=== PATIENT | female | born 1970 | race Caucasian/White ===

== ENCOUNTER 2017-06-18 12:08 | Emergency (ER) | payer OTHER ==
[2017-06-18 12:18] VITALS: BP 124/60; PULSE 89; RESP 18; TEMP 98.4
[2017-06-18] MEDS ORDERED: DIPH,PERTUS(ACELL)TETVAC-LF 0.5 ML VIAL IM ONE (12:40)
[2017-06-18] MEDS ORDERED: TOPICAL SKIN ADHESIVE 1 EACH AMP TOPICAL ONE (13:03)
--- NOTE | 2017-06-18 13:16 | ED ---
Wound/Laceration HPI - General Chief Complaint: Wound/Laceration Stated Complaint: [facility]-Hand Laceration Source: patient Mode of arrival: ambulatory Limitations: no limitations - History of Present Illness Initial Comments: 47-year-old female patient presents to emergency department today for evaluation of a laceration to the base of her right thumb. Patient states she was at work doing the dishes when a mug broke and sliced her hand. Patient denies any difficulty moving the thumb, denies any numbness or tingling to the thumb. She states that she did wash the wound with soap and water, and her boss did place butterfly strips on the laceration. Patient states that her tetanus shot is not up-to-date. 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 States that it seemed like the laceration wanted to pull apart. She denies any other injuries or other physical symptoms. - Related Data Allergies Allergy/AdvReac Type Severity Reaction Status Date / Time codeine Allergy Rapid Verified 06/18/17 12:18 Heart Rate erythromycin base Allergy Rash/Hives Verified 06/18/17 12:18 Penicillins Allergy Rash/Hives Verified 06/18/17 12:18 Review of Systems ROS Statement: Those systems with pertinent positive or pertinent negative responses have been documented in the HPI. ROS Other: All systems not noted in ROS Statement are negative. Past Medical History Past Medical History: No Reported History History of Any Multi-Drug Resistant Organisms: None Reported Past Surgical History: Bladder Surgery, Uterine Ablation Additional Past Surgical History / Comment(s): cyst removed from ovary, exploratory lap Past Psychological History: No Psychological Hx Reported Smoking Status: Current every day smoker Past Alcohol Use History: Rare Past Drug Use History: None Reported General Exam Limitations: no limitations General appearance: alert, in no apparent distress Respiratory exam: Present: normal lung sounds bilaterally. Absent: respiratory distress, wheezes, rales, rhonchi, stridor Cardiovascular Exam: Present: regular rate, normal rhythm, normal heart sounds. Absent: systolic murmur, diastolic murmur, rubs, gallop, clicks Extremities exam: Present: full ROM, normal capillary refill, other ( Superficial laceration to the base of the right thumb. Laceration is 3 cm in length. Bleeding controlled. Full range of motion to the thumb. Cap refills less than 3 seconds.). Absent: normal inspection, tenderness Neurological exam: Present: alert, oriented X3, CN II-XII intact Psychiatric exam: Present: normal affect, normal mood Skin exam: Present: warm, dry, intact, normal color. Absent: rash Course Vital Signs 06/18/17 12:15 Temperature 98.4 F Pulse Rate 89 Respiratory 18 Rate Blood Pressure 124/60 O2 Sat by Pulse 99 Oximetry Procedures - Laceration Laceration #1 Consent Obtained: verbal consent Time Out Performed: Yes Indication: laceration Site: hand (Right) Size (cm): 3 Description: linear Depth: simple, single layer Type of Sutures: other (Dermabond) Patient Tolerated Procedure: well Medical Decision Making - Medical Decision Making 47 year-old female patient presented to emergency department today for evaluation of a laceration to the base of the right thumb. Wound was evaluated and scrubbed with sterile water. Wound was well approximated without any bleeding. Did Pl., Dermabond over the wound. Gave instructions to patient regarding Dermabond care. Instructions to watch over any signs or symptoms of infection. Injections atop his primary care physician or [facility] in 1-2 days for recheck. Instructed to return for any new, worsening, or concerning symptoms. Patient verbalizes understanding and agrees with this plan. Disposition Clinical Impression: Laceration Disposition: HOME SELF-CARE Condition: Good Instructions: Laceration (ED), Skin Adhesive Care (ED) Additional Instructions: Do not scrub or pick at glue. Keep area clean and dry. Watch for signs and symptoms of infection including redness, swelling, drainage of pus, fever, or chills. Return for any new, worsening, or concerning symptoms. Follow up with her primary care physician or [facility] and 1-2 days for recheck. Referrals: Deann Alcantar MD [Primary Care Provider] - 1-2 days Time of Disposition: 13:16
== END 2017-06-18 13:25 | disposition home or self-care (01) ==
LOC: EC 12:08
DX: S61.011A Laceration without foreign body of right thumb without damage to nail, initial encounter (principal); F17.200 Nicotine dependence, unspecified, uncomplicated; Z23 Encounter for immunization; Z88.5 Allergy status to narcotic agent; Z88.0 Allergy status to penicillin; Z88.1 Allergy status to other antibiotic agents; W26.8XXA Contact with other sharp object(s), not elsewhere classified, initial encounter; Y93.G1 Activity, food preparation and clean up; Y92.69 Other specified industrial and construction area as the place of occurrence of the external cause
CPT/HCPCS: 12002; 90471; 90715; 99282

== ENCOUNTER → 2017-12-10 | Outpatient (CLI) | payer OTHER ==
--- NOTE | 2017-12-10 17:33 | XR ---
EXAMINATION TYPE: XR chest 2V DATE OF EXAM: 12/10/2017 COMPARISON: NONE HISTORY: Bronchitis. Cough TECHNIQUE: Frontal and lateral views of the chest are obtained. FINDINGS: Heart and mediastinum are normal. Lungs are clear. Diaphragm is normal. Bony thorax is int act. IMPRESSION: Normal chest
== END | disposition home or self-care (01) ==
LOC: RADXRMAIN 16:37
PROVIDERS: ATTEND Physician Assistant
DX: J20.9 Acute bronchitis, unspecified (principal)
CPT/HCPCS: 71046

== ENCOUNTER → 2017-12-23 | Outpatient (CLI) | payer OTHER ==
--- NOTE | 2017-12-24 13:23 | MM ---
Reason for exam: screening (asymptomatic). Last mammogram was performed 1 year and 7 months ago. History: Patient is postmenopausal and has history of endometrial cancer at age 21. Family history of breast cancer in 2 maternal aunts. Physical Findings: A clinical breast exam by your physician is recommended on an annual basis and results should be correlated with mammographic findings. MG 3D Screening Mammo W/Cad Bilateral CC and MLO view(s) were taken. Prior study comparison: May 23, 2016, bilateral MG 3d screening mammo w/cad. September 09, 2014, bilateral MG screening mammo w CAD. The breast tissue is heterogeneously dense. This may lower the sensitivity of mammography. Focal asymmetry upper inner left breast 7.1cm from nipple. This finding is changed when compared with previous exams. ASSESSMENT: Incomplete: need additional imaging evaluation, BI-RAD 0 RECOMMENDATION: Special view mammogram of the left breast. If lesion persists on supplemental views, image directed ultrasound is recommended. [facility] will attempt to contact patient to return for supplemental views and ultrasound if indicated.
== END | disposition home or self-care (01) ==
LOC: RADMAMWWP 15:19
PROVIDERS: ATTEND Obstetrics & Gynecology
DX: Z12.31 Encounter for screening mammogram for malignant neoplasm of breast (principal); Z80.3 Family history of malignant neoplasm of breast
CPT/HCPCS: 77063; 77067

== ENCOUNTER → 2018-01-01 | Outpatient (CLI) | payer OTHER ==
--- NOTE | 2018-01-04 08:22 | MM ---
Reason for exam: additional evaluation requested from abnormal screening. Last mammogram was performed less than 1 month ago. History: Patient is postmenopausal and has history of endometrial cancer at age 21. Family history of breast cancer in 2 maternal aunts. Physical Findings: Nurse Summary: 1cm nodule in the left breast at 11 o'clock (nurse mj). MG 3D Work Up W/Cad LT CC and MLO view(s) were taken of the left breast. Prior study comparison: December 23, 2017, bilateral MG 3d screening mammo w/cad. May 23, 2016, bilateral MG 3d screening mammo w/cad. The breast tissue is heterogeneously dense. This may lower the sensitivity of mammography. The previously seen focal asymmetry of the central inner left breast is unchanged back to 2013 and appears as fibroglandular tissue on additional views. These results were verbally communicated with the patient and result sheet given to the patient on 01/01/18. ASSESSMENT: Benign, BI-RAD 2 RECOMMENDATION: Return to routine screening mammogram schedule for both breasts.
== END | disposition home or self-care (01) ==
LOC: RADMAMWWP 15:06
PROVIDERS: ATTEND Obstetrics & Gynecology
DX: R92.8 Other abnormal and inconclusive findings on diagnostic imaging of breast (principal)
CPT/HCPCS: 77065; G0279

== ENCOUNTER 2018-01-09 07:18 | Emergency (ER) | payer OTHER ==
[2018-01-09 07:25] VITALS: TEMP 97.7
[2018-01-09] MEDS ORDERED: ONDANSETRON 4 MG/2 ML VIAL IVP STA (07:47)
[2018-01-09] MEDS ORDERED: MECLIZINE 12.5 MG TAB PO STA (07:47)
[2018-01-09 08:04] LABS: Basophils # (A) 0.1 k/uL (0-0.2); Basophils % (A) 1 %; Eosinophils # (A) 0.2 k/uL (0-0.7); Eosinophils % (A) 3 %; HCT 43.4 % (34.0-46.0); HGB 14.1 gm/dL (11.4-16.0); Lymphocytes # (A) 2.1 k/uL (1.0-4.8); Lymphocytes % (A) 34 %; MCH 29.6 pg (25.0-35.0); MCHC 32.4 g/dL (31.0-37.0); MCV 91.4 fL (80.0-100.0); Mean Platelet Volume 8.5; Monocytes # (A) 0.4 k/uL (0-1.0); Monocytes % (A) 6 %; Neutrophils # (A) 3.4 k/uL (1.3-7.7); Neutrophils % (A) 54 %; Platelet Count 189 k/uL (150-450); RBC 4.75 m/uL (3.80-5.40); RDW 12.6 % (11.5-15.5); WBC 6.2 k/uL (3.8-10.6)
[2018-01-09 08:14] LABS: ALT 30 U/L (9-52); AST 20 U/L (14-36); Albumin 3.9 g/dL (3.5-5.0); Alkaline Phosphatase 60 U/L (38-126); Anion Gap 6 mmol/L; Blood Urea Nitrogen 15 mg/dL (7-17); Calcium 9.4 mg/dL (8.4-10.2); Carbon Dioxide 26 mmol/L (22-30); Chloride 108 mmol/L (98-107); Glucose 79 mg/dL (74-99); Potassium 4.7 mmol/L (3.5-5.1); Sodium 140 mmol/L (137-145); Total Bilirubin 0.4 mg/dL (0.2-1.3); Total Protein 6.4 g/dL (6.3-8.2)
[2018-01-09] MEDS ORDERED: SODIUM CHLORIDE 0.9% 1,000 ML IV STA (08:23)
[2018-01-09 08:24] LABS: Prothrombin Time 9.8 sec (9.0-12.0)
--- NOTE | 2018-01-09 08:26 | ED ---
General Adult HPI - General Chief complaint: Dizziness Stated complaint: DIZZINESS, NAUSEA Time Seen by Provider: 01/09/18 08:15 Source: patient, RN notes reviewed Mode of arrival: wheelchair Limitations: no limitations - History of Present Illness Initial comments: 47-year-old female who presents emergency room today with chief complaint of dizziness that began 2 hours ago. She states she woke up and went to stand up out of bed and had a sensation of dizziness. Describes it as the room spinning. Since skin. Nauseated and had episodes of vomiting. She does admit that she's had small episodes of dizziness in the past but nothing quite like this. She states she has begun to feel a little better here in the emergency room. States still seems to be worse with certain movements. Denies any other complaints. Patient denies any recent fever, chills, shortness of breath, chest pain, back pain, abdominal pain, nausea or vomiting, numbness or tingling, dysuria or hematuria, constipation or diarrhea, visual changes, or any other complaints. - Related Data Previous Rx's Medication Instructions Recorded Meclizine [Antivert] 25 mg PO DAILY 10 Days tab 01/09/18 Ondansetron Odt [Zofran ODT] 4 mg PO Q8HR PRN #10 tab 01/09/18 Allergies Allergy/AdvReac Type Severity Reaction Status Date / Time codeine Allergy Rapid Verified 01/09/18 07:24 Heart Rate erythromycin base Allergy Rash/Hives Verified 01/09/18 07:24 Penicillins Allergy Rash/Hives Verified 01/09/18 07:24 sumatriptan [From Imitrex] Allergy Rapid Verified 01/09/18 07:25 Heart Rate Review of Systems ROS Statement: Those systems with pertinent positive or pertinent negative responses have been documented in the HPI. ROS Other: All systems not noted in ROS Statement are negative. Past Medical History Past Medical History: No Reported History History of Any Multi-Drug Resistant Organisms: None Reported Past Surgical History: Bladder Surgery, Uterine Ablation Additional Past Surgical History / Comment(s): cyst removed from ovary, exploratory lap nasel surg Past Psychological History: No Psychological Hx Reported Smoking Status: Current every day smoker Past Alcohol Use History: Rare Past Drug Use History: None Reported General Exam - General Exam Comments Initial Comments: General: The patient is awake and alert, in no distress, and does not appear acutely ill. Eye: Pupils are equal, round and reactive to light, extra-ocular movements are intact. No nystagmus. There is normal conjunctiva bilaterally. No signs of icterus. Ears, nose, mouth and throat: There are moist mucous membranes and no oral lesions. Tympanic tube on the left. Right TM clear. Neck: The neck is supple, there is no tenderness or JVD. Cardiovascular: There is a regular rate and rhythm. No murmur, rub or gallop is appreciated. Respiratory: Lungs are clear to auscultation, respirations are non-labored, breath sounds are equal. No wheezes, stridor, rales, or rhonchi. Musculoskeletal: Normal ROM, no tenderness. Strength 5/5. Sensation intact. Pulses equal bilaterally 2+. Neurological: A&O x 3. CN II-XII intact, There are no obvious motor or sensory deficits. Coordination appears grossly intact. Speech is normal. Skin: Skin is warm and dry and no rashes or lesions are noted. Psychiatric: Cooperative, appropriate mood & affect, normal judgment. Limitations: no limitations Course Vital Signs 01/09/18 07:21 Temperature 97.7 F Pulse Rate 78 Respiratory 18 Rate Blood Pressure 122/79 O2 Sat by Pulse 100 Oximetry EKG Findings - EKG Comments: EKG Findings:: EKG performed at 0802: A 12-lead EKG was performed and shows the following: Rate is 64, and rhythm is normal sinus. There are normal QRS complexes and normal R-wave progression. ST segments have no elevation or depression, and PA segments appear normal. Medical Decision Making - Medical Decision Making 47-year-old female with no significant past medical history presenting today with chief complaint of dizziness. She states that started when she got out of bed and stand up. Prescription is room spinning. Patient given a liter bolus here the emergency room given meclizine along with Zofran. Feeling much better at this time. Her labs been reviewed are unremarkable. Patient denies any pain at any time at this time patient is comfortable being discharged. This was following up the family doctor the next 2 days. Will be given a prescription for meclizine. Patient given information about Owen's maneuver. Patient is advised return to emergency room if any symptoms increase worsen or for any other concerns. Patient states understanding and is in agreement. - Lab Data Result diagrams: 01/09/18 07:55 01/09/18 07:55 Lab Results 01/09/18 01/09/18 01/09/18 Range/Units 07:55 07:55 07:55 WBC 6.2 (3.8-10.6) k/uL RBC 4.75 (3.80-5.40) m/uL Hgb 14.1 (11.4-16.0) gm/dL Hct 43.4 (34.0-46.0) % MCV 91.4 (80.0-100.0) fL MCH 29.6 (25.0-35.0) pg MCHC 32.4 (31.0-37.0) g/dL RDW 12.6 (11.5-15.5) % Plt Count 189 (150-450) k/uL Neutrophils % 54 % Lymphocytes % 34 % Monocytes % 6 % Eosinophils % 3 % Basophils % 1 % Neutrophils # 3.4 (1.3-7.7) k/uL Lymphocytes # 2.1 (1.0-4.8) k/uL Monocytes # 0.4 (0-1.0) k/uL Eosinophils # 0.2 (0-0.7) k/uL Basophils # 0.1 (0-0.2) k/uL PT 9.8 (9.0-12.0) sec INR 1.0 (<1.2) Sodium 140 (137-145) mmol/L Potassium 4.7 (3.5-5.1) mmol/L Chloride 108 H (98-107) mmol/L Carbon Dioxide 26 (22-30) mmol/L Anion Gap 6 mmol/L BUN 15 (7-17) mg/dL Creatinine 0.80 (0.52-1.04) mg/dL Est GFR (MDRD) Af Amer >60 (>60 ml/min/1.73 sqM) Est GFR (MDRD) Non-Af >60 (>60 ml/min/1.73 sqM) Glucose 79 (74-99) mg/dL Calcium 9.4 (8.4-10.2) mg/dL Total Bilirubin 0.4 (0.2-1.3) mg/dL AST 20 (14-36) U/L ALT 30 (9-52) U/L Alkaline Phosphatase 60 (38-126) U/L Troponin I (0.000-0.034) ng/mL Total Protein 6.4 (6.3-8.2) g/dL Albumin 3.9 (3.5-5.0) g/dL 01/09/18 Range/Units 07:55 WBC (3.8-10.6) k/uL RBC (3.80-5.40) m/uL Hgb (11.4-16.0) gm/dL Hct (34.0-46.0) % MCV (80.0-100.0) fL MCH (25.0-35.0) pg MCHC (31.0-37.0) g/dL RDW (11.5-15.5) % Plt Count (150-450) k/uL Neutrophils % % Lymphocytes % % Monocytes % % Eosinophils % % Basophils % % Neutrophils # (1.3-7.7) k/uL Lymphocytes # (1.0-4.8) k/uL Monocytes # (0-1.0) k/uL Eosinophils # (0-0.7) k/uL Basophils # (0-0.2) k/uL PT (9.0-12.0) sec INR (<1.2) Sodium (137-145) mmol/L Potassium (3.5-5.1) mmol/L Chloride (98-107) mmol/L Carbon Dioxide (22-30) mmol/L Anion Gap mmol/L BUN (7-17) mg/dL Creatinine (0.52-1.04) mg/dL Est GFR (MDRD) Af Amer (>60 ml/min/1.73 sqM) Est GFR (MDRD) Non-Af (>60 ml/min/1.73 sqM) Glucose (74-99) mg/dL Calcium (8.4-10.2) mg/dL Total Bilirubin (0.2-1.3) mg/dL AST (14-36) U/L ALT (9-52) U/L Alkaline Phosphatase (38-126) U/L Troponin I <0.012 (0.000-0.034) ng/mL Total Protein (6.3-8.2) g/dL Albumin (3.5-5.0) g/dL Disposition Clinical Impression: Dizziness Disposition: HOME SELF-CARE Condition: Good Instructions: Benign Paroxysmal Positional Vertigo (ED) Additional Instructions: Please use medication as discussed. Please follow-up with family doctor in the next 2 days. Please return to emergency room if the symptoms increase or worsen or for any other concerns. Prescriptions: Meclizine [Antivert] 25 mg PO DAILY 10 Days tab Ondansetron Odt [Zofran ODT] 4 mg PO Q8HR PRN #10 tab PRN Reason: Nausea Referrals: Luis Bowles DO [Primary Care Provider] - 1-2 days Time of Disposition: 09:15
[2018-01-09 09:19] VITALS: BP 150/80; PULSE 72; RESP 16
== END 2018-01-09 09:37 | disposition home or self-care (01) ==
LOC: EC 07:18
DX: R42 Dizziness and giddiness (principal); R11.2 Nausea with vomiting, unspecified; F17.200 Nicotine dependence, unspecified, uncomplicated; Z88.5 Allergy status to narcotic agent; Z88.0 Allergy status to penicillin; Z88.1 Allergy status to other antibiotic agents; Z88.8 Allergy status to other drugs, medicaments and biological substances
CPT/HCPCS: 36415; 93005; 80053; 84484; 85025; 85610; 99284; 96374; 96361; J2405

== ENCOUNTER → 2018-10-14 | Outpatient (CLI) | payer OTHER ==
--- NOTE | 2018-10-14 16:35 | CONS ---
CONSULTATION DATE OF SERVICE: 10/14/2018. 28-year-old lady who has been evaluated in Sleep Center for obstructive sleep apnea- hypopnea syndrome. HISTORY OF PRESENT ILLNESS/SLEEP WAKE EVALUATION: Patient was diagnosed with obstructive sleep apnea in [facility] and at that time she was started on treatment with CPAP, but then she lost around 60 pounds of her weight. Stopped symptoms of obstructive sleep apnea and sleep study was repeated and did not show abnormalities of respiration. Patient stopped using her CPAP and returned it back. Since that time, patient again increased her weight to about the same range as before losing weight which is about 190 pounds now. She again developed symptoms of snoring and awakening from sleep with dry mouth up to 3 times and 3 episodes of nocturia at night to sleep schedule. SLEEP SCHEDULE: Her sleep schedule on weekdays from 9 p.m. to 4:30 am. On weekends from 10 p.m. to 7 a.m. FALLING ASLEEP: No problems with falling asleep. DURING SLEEP: She usually sleeps on the side position with loud snoring. DURING THE DAY/SLEEP WAKE EVALUATION: No history of hypnagogic hallucinations, sleep paralysis or cataplexy. [place] Sleepiness Scale is 6. PAST MEDICAL HISTORY: Positive for allergies, sinuses problems, hyperlipidemia. PAST SURGICAL HISTORY: Partial hysterectomy and surgery for ovarian cyst in the past, wrist surgery for cyst. SOCIAL HISTORY: Positive for smoking for about 20 pack years of on and off, quit 4 weeks ago. Alcohol consumption occasional. MEDICATIONS: , amitriptyline, montelukast, colestipol, Flonase, allergy shots. FAMILY HISTORY: Hypertension, heart problems, hyperlipidemia, stroke, arthritis, sinus headaches, lung problems, bronchitis, sleep apnea, snoring, headaches, acid reflux. REVIEW OF SYSTEMS: Multiple awakenings from sleep episodes of sleepiness during the day. PHYSICAL EXAM: A 48-year-old lady without distress BP 155/95 , HR 84, RR 16, height 5 feet 3 inches, weight 189, body mass index 33.4, temperature 97.4, oxygen saturation at room air 98%. Oropharynx extremely low position of soft palate. Neck 15 inches in circumference. Abdomen slightly obese. Neck: Supple, no JVD. Thyroid is not palpable. LUNGS Clear to percussion and to auscultation. Good air exchange. No wheezing or rhonchi. HEART S1, S2 regular. No murmurs, gallops, or rubs. ABDOMEN: Obese. Soft and nontender. Bowel sounds are present. No organomegaly appreciated. EXTREMITIES No clubbing or cyanosis. WAISTLINE JOINER OVERLOCK Awake, alert, and oriented X3. Cranial nerves 2 to 7 intact. There is no fasciculation or atrophy. noted. No focal deficits observed. IMPRESSION: 1. Snoring, multiple awakenings from sleep with dry mouth and nocturia. History of obstructive sleep apnea in the past. Obstructive sleep apnea-hypopnea syndrome. 2. Obesity, body mass index 33.4. 3. Allergy. 4. History of sinus problems. 5. Hyperlipidemia. 6. Status post partial hysterectomy. 7. Status post ovarian cyst surgery in the past. 8. Status post wrist cyst surgery on the right hand. 9. History of 20 pack years smoking, quit 4 weeks ago. PLAN: 1. Polysomnography for evaluation of patient's breathing during sleep. 2. CPAP/BiPAP titration if sleep study confirms obstructive sleep apnea-hypopnea syndrome. 3. Preferable position during sleep on the side. 4. No driving if patient feels any sleepiness. 5. I will see patient for follow up visit to explain results of testing and following plan. Thank you very much for referring this patient for consultation. Sincerely, En Alba MD, PhD, FAASM Diplomat of [employer] Buyer of [facility] [place] MMODL / ABIGAILN: [id number] /
== END ==
LOC: SLEEP 14:49
PROVIDERS: ATTEND Internal Medicine
DX: G47.33 Obstructive sleep apnea (adult) (pediatric) (principal); E66.9 Obesity, unspecified; T78.40XA Allergy, unspecified, initial encounter; E78.5 Hyperlipidemia, unspecified; Z90.711 Acquired absence of uterus with remaining cervical stump; Z68.33 Body mass index [BMI] 33.0-33.9, adult; Z98.890 Other specified postprocedural states; Z87.891 Personal history of nicotine dependence; Z87.39 Personal history of other diseases of the musculoskeletal system and connective tissue; Z99.89 Dependence on other enabling machines and devices
CPT/HCPCS: 99211

== ENCOUNTER → 2019-01-13 | Outpatient (CLI) | payer OTHER ==
--- NOTE | 2019-01-13 11:47 | PN ---
PROGRESS NOTE DATE OF SERVICE: 01/13/2019 A 48-year-old lady who has been followed in the Sleep Center for treatment of obstructive sleep apnea-hypopnea syndrome. Recently, patient had polysomnogram which showed that patient has obstructive sleep apnea. Then she had CPAP titration and subsequently received CPAP unit. She was not able to use CPAP unit all the time because she had upper respiratory infection and also she has had problems with nasal mask. She tried to change her humidity from 5 down to 4, but it did not help. She still sometimes feels some dryness in her nose. I checked her CPAP unit, pressure is 11 cm of water, usage 25/ nights but usually it averaged 2.5 hours and never she was able to use it more than 4 hours. Leak is acceptable 12 L/minute. Apnea-hypopnea index is totally normal at 0.9. I explained the results of sleep studies to the patient in details. [place] Sleepiness Scale today is 4. MEDICATIONS: Valacyclovir, amitriptyline, montelukast, colestipol, Flonase, allergy shots. PHYSICAL EXAM: Patient in no distress, BP 165/86, HR 96, RR 16, weight 198, temp 97.5, oxygen saturation at room air 98%. OROPHARYNX: Low position of soft palate, Mallampati III. ABDOMEN: Slightly obese. Neck Supple, no JVD. Thyroid is not palpable. LUNGS Clear to percussion and to auscultation. Good air exchange. No wheezing or rhonchi. HEART S1, S2 regular. No murmurs, gallops, or rubs. EXTREMITIES No clubbing or cyanosis. TRANS ROUTER Awake, alert, and oriented X3. Cranial nerves 2 to 7 intact. There is no fasciculation or atrophy. noted. No focal deficits observed. IMPRESSION: 1. Obstructive sleep apnea-hypopnea syndrome, on full control with CPAP. Presently, patient had some difficulties to use CPAP equipment secondary to mask problems and some dryness in the nose and mouth. 2. Obesity. 3. History of allergies. 4. History of sinusitis. 5. History of recent upper respiratory infection. 6. Hyperlipidemia. 7. Status post partial hysterectomy. 8. Status post ovarian cyst surgery in the past. 9. Status post wrist surgery on the right side. 10.History of smoking for about 20 pack years, quit several months ago. PLAN: 1. I changed pressure down to 8 cm of water after reviewing results of the sleep study and check apnea-hypopnea index on CPAP unit. 2. We will try to fit the patient with a nasal pillow mask. 3. Patient may use nasal strips and patient will continue to use chin straps if she has it. 4. We discussed again with the patient how to use humidity, suggest to make her humidifier chamber dry in the morning. 5. Sleep hygiene with time in bed for at least 7.5 hours. 6. No driving if feeling sleepiness. Thank you very much for allowing me to participate in the management of the patient. Sincerely, En Alba MD, PhD, FAASM Diplomat of [employer]packers Manager of [facility] [place] MMODL / ABIGAILN: [id number] /
== END ==
LOC: SLEEP 10:03
PROVIDERS: ATTEND Internal Medicine
DX: G47.33 Obstructive sleep apnea (adult) (pediatric) (principal); E66.9 Obesity, unspecified; E78.5 Hyperlipidemia, unspecified; J32.9 Chronic sinusitis, unspecified; J06.9 Acute upper respiratory infection, unspecified; Z90.711 Acquired absence of uterus with remaining cervical stump; Z91.09 Other allergy status, other than to drugs and biological substances; Z98.890 Other specified postprocedural states; Z87.891 Personal history of nicotine dependence; Z99.89 Dependence on other enabling machines and devices; Z79.899 Other long term (current) drug therapy

== ENCOUNTER → 2019-03-03 | Outpatient (CLI) | payer OTHER ==
--- NOTE | 2019-03-03 11:03 | SFUN ---
SLEEP CENTER FOLLOW UP NOTE DATE OF SERVICE: 03/03/2019 A 48-year-old lady who has been followed in the Sleep Center for treatment of obstructive sleep apnea-hypopnea syndrome. This is her second visit after she was started on treatment with the CPAP. During the first visit, she was not able to use the CPAP equipment more than 4 hours at all. Presently, she is able to use machine a long time. Her mask was changed from the nasal pillow mask to a small nasal mask and she feels comfortable with this mask. Sometimes while she is using CPAP equipment she is developing headaches. [place] Sleepiness Scale today is 5. MEDICATIONS: Valacyclovir, amitriptyline, montelukast, colestipol, Flonase, allergy shots. PHYSICAL EXAM: Patient in no distress. BP 143/87, HR 76, RR 16, weight 200, temp 98.1, oxygen saturation at room air 99%. OROPHARYNX: Low position of soft palate. Mallampati 3. ABDOMEN: Slightly obese. Neck Supple, no JVD. Thyroid is not palpable. LUNGS Clear to percussion and to auscultation. Good air exchange. No wheezing or rhonchi. HEART S1, S2 regular. No murmurs, gallops, or rubs. EXTREMITIES No clubbing or cyanosis. TENANT COORDINATOR Awake, alert, and oriented X3. Cranial nerves 2 to 7 intact. There is no fasciculation or atrophy. noted. No focal deficits observed. I checked patient's CPAP unit. CPAP pressure is 8 cm of water. Usage is 29/30 nights and 22/30 nights more than 4 hours with average usage 5.4 hours which is great. Leak 12 L/minute which is acceptable. Apnea-hypopnea index of only 1.0, which is totally normal. IMPRESSION: 1. Obstructive sleep apnea-hypopnea syndrome. Patient demonstrated good compliance with treatment, benefitting from treatment. 2. Obesity. 3. History of allergies. 4. History of sinusitis. 5. Hyperlipidemia. 6. Status post partial hysterectomy. 7. Status post surgical treatment of ovarian cyst in the past. 8. Status post 3 surgery on the right side. PLAN: 1. Patient will continue to use CPAP equipment every night for the whole night. 2. I will decrease the pressure in CPAP unit down to 6 cm of water. 3. I reviewed the results of the titration with the goal to prevent any headaches which patient is sometimes experiencing. 4. Losing weight. 5. Sleep hygiene with regular time in bed for at least 8 hours. 6. No driving if feeling any sleepiness. Thank you very much for allowing me to participate in the management of your patient. Sincerely, En Alba MD, PhD, FAASM Diplomat of [employer] Mechanical Operator of [facility] [place] MMODL / IJN: [id number] /
== END | disposition home or self-care (01) ==
LOC: SLEEP 10:13
PROVIDERS: ATTEND Internal Medicine
DX: G47.33 Obstructive sleep apnea (adult) (pediatric) (principal); E66.9 Obesity, unspecified; E78.5 Hyperlipidemia, unspecified; Z86.19 Personal history of other infectious and parasitic diseases; Z91.09 Other allergy status, other than to drugs and biological substances; Z99.89 Dependence on other enabling machines and devices; Z90.710 Acquired absence of both cervix and uterus; Z98.890 Other specified postprocedural states; Z79.899 Other long term (current) drug therapy

== ENCOUNTER → 2019-11-21 | Outpatient (CLI) | payer OTHER ==
--- NOTE | 2019-11-22 12:17 | MR ---
EXAMINATION TYPE: MR brain wo/w con DATE OF EXAM: 11/21/2019 COMPARISON: CT sinuses 06/05/2016 HISTORY: Migraine TECHNIQUE: Multiplanar, multisequence images of the brain and brainstem is performed without and with IV contras t, utilizing 8.5 mL intravenous Gadavist . FINDINGS: Diffusion weighted images demonstrate no evidence of a recent infarct or other diffusion ab normality. There is no extra-axial fluid collection. There are few punctate foci of nonspecific whit e matter change predominating in the subcortical white matter with the largest on the right measuring 4 x 2 mm in the frontal lobe on axial flair fat-sat image 17. There are approximately 3 foci in the right hemisphere and 4 within the left hemisphere are all within the supratentorial white matter. The ventricular system and cisternal spaces are normal in size and appearance. The brain volume is age appropriate. Midline structures demonstrate normal morphology. The craniocervical junction appears within normal limits. Post contrast images demonstrate no abnormal enhancement. The dural venous sinuses appear pa tent. The visualized sinuses are clear other than minimal ethmoid mucosal thickening and the globes a re intact. IMPRESSION: 1. No acute infarct, midline shift or mass effect. No evidence of intracranial mass or abnormal intra cranial enhancement. 2. Mild burden nonspecific white matter change. Given the subcortical and frontal lobe distribution t hese are favored to be sequela of migraines, however can be seen in chronic microangiopathy, vasculit is, or less likely demyelinating disease. 3. Very mild ethmoid paranasal sinus mucosal thickening.
== END | disposition home or self-care (01) ==
LOC: RADMRIMAIN 11:36
PROVIDERS: ATTEND Family Medicine
DX: I67.7 Cerebral arteritis, not elsewhere classified (principal); R90.89 Other abnormal findings on diagnostic imaging of central nervous system; G43.009 Migraine without aura, not intractable, without status migrainosus
CPT/HCPCS: 70553; A9585

== ENCOUNTER → 2019-12-13 | Outpatient (CLI) | payer OTHER ==
--- NOTE | 2019-12-13 14:47 | XR ---
EXAMINATION TYPE: XR foot complete RT DATE OF EXAM: 12/13/2019 COMPARISON: NONE HISTORY: 41 year-old female right foot swelling TECHNIQUE: 3 views FINDINGS: Small posterior and plantar calcaneal spurs. No acute fracture, subluxation, or dislocation seen. Mil d first MTP joint degenerative change. Tiny type I accessory navicular. IMPRESSION: Small calcaneal heel spurs and mild first MTP joint OA. No acute osseous abnormality seen.
== END | disposition home or self-care (01) ==
LOC: RADXRMAIN 14:24
PROVIDERS: ATTEND Nurse Practitioner Family
DX: M19.071 Primary osteoarthritis, right ankle and foot (principal)

== ENCOUNTER → 2020-04-14 | Outpatient (CLI) | payer OTHER ==
--- NOTE | 2020-04-16 11:00 | MR ---
EXAMINATION TYPE: MR foot RT wo con DATE OF EXAM: 04/14/2020 COMPARISON: X-ray 12/13/2019 HISTORY: Rt medial foot pain/swelling Standard multiplanar, multisequence MRI departmental protocol Multiplanar, multisequence images of the right foot were acquired. Diffusion weighted imaging was per formed. FINDINGS: There is a small plantar calcaneal spur. There is no evidence of marrow edema or contusion. Trace amount of fluid is seen in the posterior aspect of the ankle joint. Peroneous longus and brevis tendons are intact and have a normal appearance. There is a small amount of fluid surrounding the posterior tibialis and flexor digitorum tendons. Achilles tendon is intact. The sinus tarsi has a normal appearance. Medial and lateral ligamentous complex appears intact including the deltoid ligament. There is increa sed signal along the posterior medial tibial calcaneal ligament without evidence of disruption. There is mild arthropathy of the first MTP joint. Posteriorly there is increased signal along the capsule. Findings are suspicious for a posterior tibi ofibular ligament sprain. IMPRESSION: 1. Tenosynovitis of the posterior tibialis and flexor digitorum tendons. 2. Sprain of the posterior tibial calcaneal ligament. 3. Sprain of the posterior tibial talar ligament.
== END | disposition home or self-care (01) ==
LOC: RADMRIMAIN 11:07
PROVIDERS: ATTEND Podiatrist Foot & Ankle Surgery
DX: M65.9 Synovitis and tenosynovitis, unspecified (principal); S93.601A Unspecified sprain of right foot, initial encounter; R60.0 Localized edema; M67.971 Unspecified disorder of synovium and tendon, right ankle and foot

== ENCOUNTER → 2020-04-16 | Outpatient (CLI) | payer OTHER ==
--- NOTE | 2020-04-17 12:10 | MR ---
EXAMINATION TYPE: MR ankle RT wo con DATE OF EXAM: 04/16/2020 COMPARISON: MRI of the right foot dated 04/14/2020 and right foot x-rays dated 12/13/2019 HISTORY: Right Ankle Pain, Swelling, Redness and Limited Movement. Since Dec TECHNIQUE: Multiplanar, multisequence images of the right ankle were acquired without intravenous contrast. FINDINGS: The Achilles tendon is unremarkable in signal and morphology without discontinuity. There is very min imal high signal in the origin of the plantar fascia between the plantar fascia and a moderate planta r heel spur. Sinus tarsus is unremarkable. Trace tibiotalar joint effusion seen. No focal suspicious bone marrow edema is seen. Incomplete fat saturation of the metatarsals relates t o suboptimal technique. Mild osseous proliferation of the dorsal tibiotalar joint and midfoot, overal l mild arthropathy. The anterior talofibular ligament and posterior tibiofibular femoral ligament appear intact as does t he deltoid ligament however there is some high signal seen in the posterior talofibular ligament and anterior talofibular ligament displays thickening indicative of sprain. Lisfranc ligament appears int act as does the spring ligament. There is thickening and abnormal signal in both the peroneus longus and peroneus brevis tendons witho ut discontinuity. Small amount of fluid is seen surrounding the tibialis posterior, flexor digitorum longus, and flexor hallucis longus. Increased signal is also seen of the flexor hallucis limits. A sm all amount of fluid is also seen surrounding the extensor tendons. IMPRESSION: 1. Tendinosis/tenosynovitis without tear or discontinuity of the peroneus longus and peroneus brevis tendons, flexor compartment tendons and extensor compartment tendons. Overall mild degree. 2. Low-grade sprains of the anterior talofibular ligament and posterior talofibular ligament. 3. Minimal tibiotalar joint effusion. 4. Slight high signal of the origin of the plantar fascia adjacent to a moderate heel spur.
== END | disposition home or self-care (01) ==
LOC: RADMRIMAIN 14:59
PROVIDERS: ATTEND Podiatrist Foot & Ankle Surgery
DX: S93.491A Sprain of other ligament of right ankle, initial encounter (principal); M77.31 Calcaneal spur, right foot

== ENCOUNTER → 2020-12-28 | Outpatient (CLI) | payer OTHER ==
[~2020-12-28] MED LIST: IODINE/POTASS IOD (LUGOLS) BOTTLE TOPICAL ONE
--- NOTE | 2020-12-31 10:32 | NM ---
EXAMINATION TYPE: NM DatScan Brain SPECT DATE OF EXAM: 12/28/2020 COMPARISON: NONE HISTORY: Tremor, unspecified TECHNIQUE: 10 drops of Lugol's solution was administered 1 hour prior to injection as a thyroid bloc linda agent. After the administration of 4.66 mCi I-123 Ioflupane DaTscan. Images obtained 3 hours p ost injection. SPECT images of the brain were acquired with axial and coronal reconstructions. FINDINGS: Normal radiopharmaceutical uptake seen along the striatum on the left. Uptake is mildly asymmetric, m ild decreased uptake posterior striatum on the right is suspected. IMPRESSION: Abnormal striatum on the right as described
== END | disposition home or self-care (01) ==
LOC: RADNMMAIN 10:32
PROVIDERS: ATTEND Psychiatry & Neurology Neurology
DX: R25.1 Tremor, unspecified (principal)
CPT/HCPCS: 78803; A9584

== ENCOUNTER → 2020-12-28 | Outpatient (CLI) | payer OTHER ==
--- NOTE | 2020-12-31 11:52 | MM ---
Reason for exam: screening (asymptomatic). Last mammogram was performed 3 years ago. History: Patient is postmenopausal and has history of endometrial cancer at age 21. Family history of breast cancer in 2 maternal aunts and breast cancer in paternal aunt. Taking estrogen for 3 years. Taking progesterone for 3 years. Physical Findings: A clinical breast exam by your physician is recommended on an annual basis and results should be correlated with mammographic findings. MG Screening Mammo w CAD Bilateral CC and MLO view(s) were taken. Prior study comparison: December 23, 2017, bilateral MG 3d screening mammo w/cad. May 23, 2016, bilateral MG 3d screening mammo w/cad. September 09, 2014, bilateral MG screening mammo w CAD. There are scattered fibroglandular densities. Asymmetric densities left CC view are unchanged. No significant changes when compared with prior studies. ASSESSMENT: Negative, BI-RAD 1 RECOMMENDATION: Routine screening mammogram of both breasts in 1 year.
== END | disposition home or self-care (01) ==
LOC: RADMAMWWP 10:04
PROVIDERS: ATTEND Obstetrics & Gynecology
DX: Z12.31 Encounter for screening mammogram for malignant neoplasm of breast (principal)
CPT/HCPCS: 77067

== ENCOUNTER 2021-01-25 07:47 | Emergency (ER) | payer OTHER ==
[2021-01-25 07:52] VITALS: TEMP 98.1
[2021-01-25] MEDS ORDERED: methylPREDNISolone SOD SUCCI 125 MG/2 ML VIAL IV STA (08:13)
[2021-01-25] MEDS ORDERED: diphenhydrAMINE 50 MG/ML 1 ML VIAL IVP STA (08:13)
--- NOTE | 2021-01-25 08:15 | ED ---
General Adult HPI - General Chief complaint: Allergic Reaction Stated complaint: Allergic reaction Time Seen by Provider: 01/25/21 07:53 Source: patient, RN notes reviewed Mode of arrival: ambulatory Limitations: no limitations - History of Present Illness Initial comments: This is a 50-year-old female presents emergency Department with chief complaint of possible ALLERGIC reaction. Patient states she started on new medication that she started at 10 PM last night. Patient states that she was started on primidone and states that she woke up feeling like she hasn't throat swelling, tightness lip swelling, not feeling well. Patient states that she had a reaction like this in the past with another medication. Patient denies any fevers or chills. Patient denies any exact chest pain she has mild shortness breath. No other complaints. - Related Data Previous Rx's Medication Instructions Recorded Ondansetron Odt [Zofran ODT] 4 mg PO Q8HR PRN #10 tab 01/09/18 RX: Meclizine [Antivert] 25 mg PO DAILY 10 Days tab 01/09/18 Allergies Allergy/AdvReac Type Severity Reaction Status Date / Time codeine Allergy Rapid Verified 01/25/21 07:50 Heart Rate erythromycin base Allergy Rash/Hives Verified 01/25/21 07:50 Penicillins Allergy Rash/Hives Verified 01/25/21 07:50 sumatriptan [From Imitrex] Allergy Rapid Verified 01/25/21 07:50 Heart Rate Review of Systems ROS Statement: Those systems with pertinent positive or pertinent negative responses have been documented in the HPI. ROS Other: All systems not noted in ROS Statement are negative. Past Medical History Past Medical History: No Reported History Additional Past Medical History / Comment(s): tremors History of Any Multi-Drug Resistant Organisms: None Reported Past Surgical History: Bladder Surgery, Orthopedic Surgery, Uterine Ablation Additional Past Surgical History / Comment(s): cyst removed from ovary, exploratory lap nasel surg, R foot Past Psychological History: No Psychological Hx Reported Smoking Status: Current every day smoker Past Alcohol Use History: None Reported Past Drug Use History: None Reported General Exam Limitations: no limitations General appearance: alert, in no apparent distress Head exam: Present: atraumatic, normocephalic, normal inspection Eye exam: Present: normal appearance, PERRL, EOMI. Absent: scleral icterus, co njunctival injection, periorbital swelling ENT exam: Present: normal exam, normal oropharynx, mucous membranes moist Neck exam: Present: normal inspection, full ROM. Absent: tenderness, meningismus, lymphadenopathy Respiratory exam: Present: normal lung sounds bilaterally. Absent: respiratory distress, wheezes, rales, rhonchi, stridor Cardiovascular Exam: Present: regular rate, normal rhythm, normal heart sounds. Absent: systolic murmur, diastolic murmur, rubs, gallop, clicks GI/Abdominal exam: Present: soft, normal bowel sounds. Absent: distended, tenderness, guarding, rebound, rigid Neurological exam: Present: alert, oriented X3, CN II-XII intact Skin exam: Present: warm, dry, intact, normal color. Absent: rash Course Vital Signs 01/25/21 01/25/21 01/25/21 07:50 08:00 08:01 Temperature 98.1 F Pulse Rate 84 78 Respiratory 18 24 24 Rate Blood Pressure 174/84 O2 Sat by Pulse 100 100 Oximetry 01/25/21 08:56 Temperature Pulse Rate 77 Respiratory 16 Rate Blood Pressure 150/86 O2 Sat by Pulse 100 Oximetry EKG Findings - EKG Comments: EKG Findings:: EKG performed at 17:58 normal sinus rhythm rate of 73 HI 122 QRS 78 QT/QTC 380/427 Medical Decision Making - Medical Decision Making Patient updated on results and reevaluated. She does state that her throat feels improved. Patient most likely is having a reaction from medication. Patient we discharged in stable condition return parameters discussed. - Lab Data Result diagrams: 01/25/21 08:21 01/25/21 08:21 Lab Results 01/25/21 01/25/21 01/25/21 Range/Units 08:21 08:21 08:21 WBC 8.7 (3.8-10.6) k/uL RBC 4.48 (3.80-5.40) m/uL Hgb 14.0 (11.4-16.0) gm/dL Hct 41.0 (34.0-46.0) % MCV 91.5 (80.0-100.0) fL MCH 31.2 (25.0-35.0) pg MCHC 34.1 (31.0-37.0) g/dL RDW 12.5 (11.5-15.5) % Plt Count 183 (150-450) k/uL MPV 8.7 Neutrophils % 65 % Lymphocytes % 25 % Monocytes % 5 % Eosinophils % 3 % Basophils % 1 % Neutrophils # 5.6 (1.3-7.7) k/uL Lymphocytes # 2.2 (1.0-4.8) k/uL Monocytes # 0.5 (0-1.0) k/uL Eosinophils # 0.2 (0-0.7) k/uL Basophils # 0.1 (0-0.2) k/uL Sodium 137 (137-145) mmol/L Potassium 4.4 (3.5-5.1) mmol/L Chloride 107 (98-107) mmol/L Carbon Dioxide 27 (22-30) mmol/L Anion Gap 3 mmol/L BUN 12 (7-17) mg/dL Creatinine 0.86 (0.52-1.04) mg/dL Est GFR (CKD-EPI)AfAm >90 (>60 ml/min/1.73 sqM) Est GFR (CKD-EPI)NonAf 80 (>60 ml/min/1.73 sqM) Glucose 104 H (74-99) mg/dL Calcium 9.4 (8.4-10.2) mg/dL Total Bilirubin 0.5 (0.2-1.3) mg/dL AST 18 (14-36) U/L ALT 13 (4-34) U/L Alkaline Phosphatase 83 (38-126) U/L Troponin I <0.012 (0.000-0.034) ng/mL Total Protein 6.4 (6.3-8.2) g/dL Albumin 3.9 (3.5-5.0) g/dL Disposition Clinical Impression: Allergic reaction to drug Disposition: HOME SELF-CARE Condition: Stable Instructions (If sedation given, give patient instructions): General Allergic Reaction (ED) Additional Instructions: Continue Benadryl every 6 hours as directed. Please return to the Emergency Department if symptoms worsen or any other concerns. Is patient prescribed a controlled substance at d/c from ED?: No Referrals: Luis Bowles DO [Primary Care Provider] - 1-2 days Time of Disposition: 09:37
[2021-01-25 08:43] LABS: Basophils # (A) 0.1 k/uL (0-0.2); Basophils % (A) 1 %; Eosinophils # (A) 0.2 k/uL (0-0.7); Eosinophils % (A) 3 %; Lymphocytes # (A) 2.2 k/uL (1.0-4.8); Lymphocytes % (A) 25 %; MCH 31.2 pg (25.0-35.0); MCHC 34.1 g/dL (31.0-37.0); MCV 91.5 fL (80.0-100.0); Mean Platelet Volume 8.7; Monocytes # (A) 0.5 k/uL (0-1.0); Monocytes % (A) 5 %; Neutrophils # (A) 5.6 k/uL (1.3-7.7); Neutrophils % (A) 65 %; Platelet Count 183 k/uL (150-450); RBC 4.48 m/uL (3.80-5.40); RDW 12.5 % (11.5-15.5); WBC 8.7 k/uL (3.8-10.6)
[2021-01-25 08:51] LABS: ALT 13 U/L (4-34); AST 18 U/L (14-36); African American GFR (CKD) >90 (>60 ml/min/1.73 sqM); Albumin 3.9 g/dL (3.5-5.0); Alkaline Phosphatase 83 U/L (38-126); Anion Gap 3 mmol/L; Blood Urea Nitrogen 12 mg/dL (7-17); Calcium 9.4 mg/dL (8.4-10.2); Carbon Dioxide 27 mmol/L (22-30); Chloride 107 mmol/L (98-107); Glucose 104 mg/dL (74-99); Non-African American GFR(CKD) 80 (>60 ml/min/1.73 sqM); Potassium 4.4 mmol/L (3.5-5.1); Sodium 137 mmol/L (137-145); Total Bilirubin 0.5 mg/dL (0.2-1.3); Total Protein 6.4 g/dL (6.3-8.2)
[2021-01-25 08:57] VITALS: BP 150/86; PULSE 77; RESP 16
== END 2021-01-25 09:54 | disposition home or self-care (01) ==
LOC: EC 07:47
DX: R06.02 Shortness of breath (principal); T50.905A Adverse effect of unspecified drugs, medicaments and biological substances, initial encounter; Z88.0 Allergy status to penicillin; F17.200 Nicotine dependence, unspecified, uncomplicated
CPT/HCPCS: 36415; 93005; 80053; 84484; 85025; 99285; 96374; 96375; J1200; J2930

== ENCOUNTER → 2021-12-09 | Outpatient (CLI) | payer OTHER ==
--- NOTE | 2021-12-10 09:02 | MR ---
EXAMINATION TYPE: MR ankle RT wo con DATE OF EXAM: 12/09/2021 COMPARISON: 04/16/2020 HISTORY: 51-year-old female right ankle pain and swelling, limited range of motion. TECHNIQUE: Multiplanar, multisequence images of the right ankle were obtained without IV contrast. FINDINGS: There is new focal subchondral marrow edema along the dorsal distal mid navicular with curvilinear lo w T1 signal. Findings could represent edema reactive to a focal osteochondral injury or subtle subcho ndral impaction fracture. Otherwise, no acute or healing fracture is seen. Subtalar joint is aligned. Small tibiotalar joint effusion. Small delineation to the Achilles tendon. [id number] sized plantar heel spur redemonstrated. No significant abnormal thickening at the o rigin of the plantar fascia. Preserved signal within the sinus Tarsi. The tarsal tunnel is clear. There is mild tenosynovial fluid along both the medial flexor tendons as well as the lateral peroneal tendons. Interval surgical repair at the navicular insertion of the posterior tibial tendon. No tate tear is identified. There is a short segment split tear measuring approximately 1.2 cm long at the insertion of the peron eus brevis, refer to axial image 4. Anterior extensor tendons appear satisfactory. The ATFL and PTFL appear intact. Mild thickening of the CFL could represent a low-grade or chronic sp rain. Somewhat globular signal of the deep posterior deltoid ligament fibers suggesting a low-grade or wood technologist amanda sprain. The syndesmosis appears intact. Mild soft tissue swelling both sides of the ankle. Some susceptibility artifact noted on the superficial aspect of the heel pad. Correlate to exclude so me type of retained foreign body. IMPRESSION: 1. Interval surgical repair at the navicular insertion of the posterior tibial tendon. No tate tear is identified. 2. New focal subchondral signal change along the dorsal distal navicular could be reactive to an oste ochondral injury at the navicular cuneiform joint versus a subchondral impaction fracture. 3. A short segment longitudinal split tear involving the insertional fibers of the peroneus brevis me asuring 1.2 cm long. 4. Scattered tenosynovial fluid along both medial flexor tendons as well as the lateral peroneal tend ons nonspecific. This could represent physiologic fluid or mild tenosynovitis. 5. Low-grade versus chronic sprain of the CFL as well as the deep posterior deltoid ligament fibers. 6. Focal susceptibility artifact along the superficial aspect of the heel pad. Correlate to exclude s ome type of retained foreign body or external artifact.
== END | disposition home or self-care (01) ==
LOC: RADMRIMAIN 11:46
PROVIDERS: ATTEND Podiatrist Foot & Ankle Surgery
DX: M66.871 Spontaneous rupture of other tendons, right ankle and foot (principal)

== ENCOUNTER → 2022-08-14 | Outpatient (CLI) | payer OTHER ==
--- NOTE | 2022-08-14 14:57 | P.SLEEP ---
History of Present Illness DATE: 08/14/2022 CONSULTATION/NEW PATIENT EVALUATION HISTORY OF PRESENT ILLNESS/SLEEP-WAKE EVALUATION: 52 year old lady had been evaluated in the sleep center for obstructive sleep apnea hypopnea syndrome. Last time I saw patient in February 2019. Patient continued to use use CPAP equipment every night at the present time, previously she was not fully compliant. I checked CPAP unit. Pressure is 6 cm of water usage is 100% of nights, average 5.3 hours per night. Leak is 0 L/m which is perfect. Apnea hypopnea index is 2.8 which is normal. SLEEP SCHEDULE: Usually sleep schedule on weekdays from 9 PM to 5 AM, during days off from 10 PM to 7 AM. FALLING ASLEEP: Sometimes patient has problems with the falling asleep, has TV set and bedroom. DURING SLEEP: Patient usually sleeps on the side position. While using CPAP she still snores occasionally. She may wake up from sleep up to 2 times with nocturia No history of hypnogogical hallucinations, sleep paralysis, or cataplexy. DURING THE DAY/WAKE STATE: In the morning he may feel some tiredness. [place] sleepiness scale is 6. Patient does not take any naps. PAST MEDICAL HISTORY: Hypertension, hyperlipidemia, ALLERGY, sinuses problems, hairpiece Simplex infection, asthma,Covid 19 in November 2021. PAST SURGICAL HISTORY: Partial hysterectomy, nasal surgery. MEDICATIONS: Lisinopril/hydrochlorothiazide, atorvastatin 5 mg once a day, albuterol, aciclovir. SOCIAL HISTORY: Vape smoking, alcohol consumption occasional. FAMILY HISTORY: Hypertension, heart problems, sleep apnea, diabetes, mental illness. REVIEW OF SYSTEMS: Occasional snoring with CPAP. No fevers. No double vision. No recent chest pain. No shortness of breath. No abdominal pain. No bleeding episodes. No blood in urine. No seizure episodes. PHYSICAL EXAMINATION: GENERAL: A pleasant patient without any distress. VITAL SIGNS: BP 116/66, HR 87, RR 16, weight 201.6 pounds, height 5 foot 3 inches, body mass index 35.6. HEENT: PERRLA, EOMI. Evaluation of oropharynx showed tongue protrudes midline, low position of soft palate Mallampati 3. NECK: Supple. No JVD. Thyroid is not palpable. 17 inches in circumference. LUNGS: Clear to percussion and to auscultation. Good air exchange. No wheezing or rhonchi. HEART: S1, S2 regular. No murmurs, gallops or rubs. ABDOMEN: Soft and nontender. Bowel sounds are present. No organomegaly appreciated. EXTREMITIES: No clubbing or cyanosis. LITHOGRAPHIC ETCHER: Awake, alert, and oriented x3. Cranial nerves 2 to 7 intact. There is no fasciculation or atrophy noted. No focal deficits observed. ASSESSMENT: 1. Obstructive sleep apnea-hypopnea syndrome, patient demonstrated the great compliance with CPAP treatment, benefiting from treatment. Occasional snoring on CPAP. 2. Obesity body mass and is 35.6. 3 hypertension. 4. Hyperlipidemia. 5 ALLERGY. 6. History of sinusitis problems, status post nasal surgery in 2019. 7. Hairpiece Simplex on the face. 8. Asthma. 9. Status post COVID-19 in November 2021. PLAN: 1. I changed pressure in CPAP unit up to 7 cm of water. Patient should continue to use CPAP equipment every night for the whole night. 2. Prescription for all necessary CPAP supplies including mask acute filters have been written and sended to [facility] 3. Preferable position during sleep on the side. 4. No driving if patient feels any sleepiness. Patient is aware of civil and criminal liability for unsafe driving. 5. Sleep hygiene with regular sleep time for at least 7.5-8 hours. 6. Watching and losing weight. 7. Follow up visit in 6 months or earlier if patient has any problems. Thank you very much for referring this patient for consultation. Sincerely, En Alba MD, PhD, FAASM. Diplomat of [employer], Sleep Medicine Board by [employer] Academic Records Specialist of [facility] [place] Past Medical History Past Medical History: No Reported History Additional Past Medical History / Comment(s): tremors History of Any Multi-Drug Resistant Organisms: None Reported Past Surgical History: Bladder Surgery, Orthopedic Surgery, Uterine Ablation Additional Past Surgical History / Comment(s): cyst removed from ovary, exploratory lap nasel surg, R foot Past Psychological History: No Psychological Hx Reported Smoking Status: Current every day smoker Past Alcohol Use History: None Reported Past Drug Use History: None Reported Medications and Allergies Home Medications Medication Instructions Recorded Confirmed Type Meclizine [Antivert] 25 mg PO DAILY 10 Days tab 01/09/18 Rx Ondansetron Odt [Zofran ODT] 4 mg PO Q8HR PRN #10 tab 01/09/18 Rx Allergies Allergy/AdvReac Type Severity Reaction Status Date / Time codeine Allergy Rapid Verified 01/25/21 07:50 Heart Rate erythromycin base Allergy Rash/Hives Verified 01/25/21 07:50 Penicillins Allergy Rash/Hives Verified 01/25/21 07:50 sumatriptan [From Imitrex] Allergy Rapid Verified 01/25/21 07:50 Heart Rate Sleep Note - Sleep Note Sleep Note: Temperature: Pulse Rate: Respiratory Rate: Blood Pressure: SpO2: Height: Weight: BMI: Neck Circumference:
== END ==
LOC: SLEEP 13:55
PROVIDERS: ATTEND Internal Medicine
DX: G47.33 Obstructive sleep apnea (adult) (pediatric) (principal); I10 Essential (primary) hypertension; E78.5 Hyperlipidemia, unspecified; J45.909 Unspecified asthma, uncomplicated; E66.9 Obesity, unspecified; Z99.89 Dependence on other enabling machines and devices; Z68.35 Body mass index [BMI] 35.0-35.9, adult; Z86.16 Personal history of COVID-19; J32.9 Chronic sinusitis, unspecified; Z88.5 Allergy status to narcotic agent; Z88.1 Allergy status to other antibiotic agents; Z88.8 Allergy status to other drugs, medicaments and biological substances; Z88.0 Allergy status to penicillin
CPT/HCPCS: 99211

== ENCOUNTER → 2023-02-18 | Outpatient (CLI) | payer OTHER ==
--- NOTE | 2023-02-18 11:50 | CA ---
Exercise Stress Test Report Name: Shirley Farr Exam Date: 02/18/2023 09:40 Exam Location: [place] Stress Ht (in): 62 Wt (lb): 200 BSA: 1.91 Ordering Phys: Luis Bowles DO Referring Phys: Luis Bowles DO Technologist: Kevin Kyle Age: 52 Gender: F : 1970 Procedure CPT: Indications: R07.89 chest pain ICD-10 Codes: Patient History: Medications: Meds past 24 hrs: Pretest Chest Pain: STRESS TEST Celestino Protocol Exercise Duration (min:sec): 06:[address] Depressions (mm): Angina Score: Molina Score: Resting HR (bpm): 87 Peak HR (bpm): 146 Resting BP (mmHg): 122 / 78 Peak BP (mmHg): 131 / 67 MPHR: 169 Target HR: 144 % MPHR: 86 METS: 7.1 Total Dose: Peak Dose: Atropine: Double Product: 01508 BP Response: Stress Termination: TARGET HR REACHED/MAX EXERTION Stress Symptoms: CHEST PRESSURE Stress Summary: ECG ANALYSIS Resting ECG: Stress ECG: CONCLUSIONS Baseline heart rate 89 beats a minute, Baseline blood pressure 122/78 mmHg baseline 12-lead EKG showed normal ST segments Patient exercised on a Celestino protocol for 6 minutes achieving a peak heart rate of 146 beats a minute. Peak blood pressure 131/67 mmHg Patient complained of shortness of breath on exertion and chest pressure There was no ECG is for ischemia No arrhythmias noted Impression average excess capacity Shortness of breath and chest pressure on exertion without any EKG abnormalities at this workload level Dr. Lincoln Garcia MD (Electronically Signed) Final Date: 18 February 2023 11:48
== END | disposition home or self-care (01) ==
LOC: RADNMMAIN 08:25
PROVIDERS: ATTEND Family Medicine
DX: R07.89 Other chest pain (principal); R06.02 Shortness of breath
CPT/HCPCS: 93017

== ENCOUNTER → 2023-02-18 | Outpatient (CLI) | payer OTHER ==
--- NOTE | 2023-02-18 10:51 | P.PN ---
Subjective DATE: 02/18/2023 FOLLOW UP VISIT. Patient with obstructive sleep apnea hypopnea syndrome return to sleep center for follow-up visit. Information from previous visit have been reviewed. Patient is using PAP equipment every night for the whole night, getting PAP supplies in time. The patient does not have significant problems with the mask, PAP unit. Patient has problems with the humidification, sometimes water goes to her nose [place] sleepiness scale is 5, which is normal. I checked information from PAP unit and explaining to the patient. PAP unit pressure 7 cm H2O. Usage is 100 % for more then 4 hours, average 6.8 hours per night. Leak is 0 l/m, which is perfect. Apnea Hypopnea Index is 2.2, which is normal. I discussed with patient in details position of the machine, position of the tube, I teach her how to adjust humidity and temperature in the tube. MEDICATIONS:1. Atorvastatin 20 mg once a day 2. Pantoprazole 3. Advair 4. Acyclovir During physical exam: GENERAL: A pleasant patient without any distress. VITAL SIGNS: BP 133/84, HR 92, RR 20 , weight 211, temperature 98.7, oxygen saturation at room air 97 % . HEENT: PERRLA, EOMI.low position of soft palate, Mallapati 3 . NECK: Supple. No JVD. LUNGS: Clear to percussion and to auscultation. Good air exchange. No wheezing or rhonchi. HEART: S1, S2 regular. ABDOMEN: Soft and nontender.[] EXTREMITIES: No clubbing or cyanosis. LABEL FOLDER: Awake, alert, and oriented x3. No focal deficit. Impressions: 1. Obstructive sleep apnea-hypopnea syndrome. Patient demonstrated great compliance with treatment, benefiting from treatment. 2. Obesity body mass and is 36.7. 3. Hypertension. 4. Hyperlipidemia. 5. ALLERGY. 6. History of sinuses problems. 7. History of herpes simplex. 8. Asthma. 9. Status post COVID-19 in 2021. Plan: 1. Continue using PAP equipment every night for the whole night. 2. To change air filter at least 1-2 times per month. 3. PAP unit should stay lower then position of the head. 4. Advised patient to remove all remaining water from humidifier canister daily and make it dry after each usage. Refill canister with fresh distilled water before each usage. 5. Sleep hygiene with regular time in bed for at least 8 hours. 6. Precautions related to driving. No driving if feel any sleepiness. 7. I will maintain prescription for PAP supplies including mask, tube, filters. 8. Follow up visit in 6 months or earlier if patient has any problems. 9. Watching and losing weight. Thank you very much for allowing me to participate in the management of your patient. En Alba MD, PhD, FAASM. Diplomat of [employer], Sleep Medicine Board by [employer] Software Engineer [employer] [facility] [place]
== END ==
LOC: SLEEP 10:15
PROVIDERS: ATTEND Internal Medicine
DX: G47.33 Obstructive sleep apnea (adult) (pediatric) (principal); E66.9 Obesity, unspecified; E78.5 Hyperlipidemia, unspecified; I10 Essential (primary) hypertension; Z79.51 Long term (current) use of inhaled steroids; Z79.899 Other long term (current) drug therapy; Z86.16 Personal history of COVID-19; Z87.09 Personal history of other diseases of the respiratory system; Z99.89 Dependence on other enabling machines and devices; Z88.5 Allergy status to narcotic agent; Z88.1 Allergy status to other antibiotic agents; Z88.8 Allergy status to other drugs, medicaments and biological substances; F17.200 Nicotine dependence, unspecified, uncomplicated
CPT/HCPCS: 99212

== ENCOUNTER → 2023-04-22 | Outpatient (CLI) | payer OTHER ==
[2023-04-22 17:48] LABS: INR 0.9 (<1.2)
[2023-04-22 17:49] LABS: Partial Thromboplastin Time 22.1 sec (22.0-30.0); Prothrombin Time 9.6 sec (9.0-12.0)
[2023-04-23 03:18] LABS: Basophils # (A) 0.07 X 10*3/uL (0.00-0.10); Eosinophils # (A) 0.22 X 10*3/uL (0.04-0.35); Eosinophils % (A) 3.1 %; HCT 40.5 % (37.2-46.3); Lymphocytes # (A) 2.09 X 10*3/uL (0.90-5.00); Lymphocytes % (A) 29.7 %; MCH 30.6 pg (27.0-32.0); MCHC 32.1 d/dL (32.0-37.0); MCV 95.3 FL (80.0-97.0); Mean Platelet Volume 11.8 FL (9.5-12.2); Monocytes # (A) 0.63 X 10*3/uL (0.20-1.00); NRBC Per 100 WBC 0 X 10*3/uL (0.00-0.01); Neutrophils # (A) 4.01 X 10*3/uL (1.80-7.70); Neutrophils % (A) 57.1 %; Platelet Count 209 X 10*3/uL (140-440); RBC 4.25 X 10*6/uL (4.10-5.20); RDW 12.2 % (11.5-14.5); WBC 7.03 X 10*3/uL (4.50-10.00)
== END | disposition home or self-care (01) ==
LOC: LABWHC1 16:06
PROVIDERS: ATTEND Ophthalmology
DX: H11.32 Conjunctival hemorrhage, left eye (principal)
CPT/HCPCS: 36415; 85025; 85302; 85610; 85730

== ENCOUNTER → 2024-02-18 | Outpatient (CLI) | payer MEDICAID ==
[2024-02-18 14:21] VITALS: BP 139/83; PULSE 78; RESP 16; TEMP 97.8
--- NOTE | 2024-02-18 14:43 | P.PN ---
Subjective DATE: 02/18/2024 FOLLOW UP VISIT. Patient with obstructive sleep apnea hypopnea syndrome return to sleep center for follow-up visit. Information from previous visit have been reviewed. Patient is using PAP equipment every night for the whole night, getting PAP supplies in time. The patient does not have significant problems with the mask, PAP unit and humidification. Maribel sleepiness scale is 7, which is in normal range. I checked information from PAP unit. PAP unit pressure 7 cm H2O. Usage is 100% for more then 4 hours, average 6 hours per night. Leak is perfect 0 l/m. Apnea Hypopnea Index is 2.7, which is normal. MEDICATIONS:1. Lisinopril/hydrochlorothiazide 2. Aciclovir During physical exam: GENERAL: A pleasant patient without any distress. VITAL SIGNS: Please see below, weight 212 pounds, BMI 37.5. HEENT: PERRLA, EOMI.low position of soft palate, Mallapati 3 . NECK: Supple. No JVD. LUNGS: Clear to percussion and to auscultation. Good air exchange. No wheezing or rhonchi. HEART: S1, S2 regular. ABDOMEN: Soft and nontender.[] EXTREMITIES: No clubbing or cyanosis. LEPIDOPTERIST: Awake, alert, and oriented x3. No focal deficit. Impressions: 1. Obstructive sleep apnea-hypopnea syndrome. Patient demonstrated great compliance with treatment, benefiting from treatment. 2. Obesity, BMI 37.5, weight is about the same as during previous visit. 3. Hypertension. 4. Allergy. 5. Hyperlipidemia. 6. History of sinuses problems. 7. History of herpes simplex. 8. Asthma. 9. Status post COVID-19 in the past. Plan: 1. Continue using PAP equipment every night for the whole night. 2. To change air filter at least 1-2 times per month. 3. PAP unit should stay lower then position of the head. 4. Advised patient to remove all remaining water from humidifier canister daily and make it dry after each usage. Refill canister with fresh distilled water before each usage. 5. Sleep hygiene with regular time in bed for at least 8 hours. 6. Precautions related to driving. No driving if feel any sleepiness. 7. I will maintain prescription for PAP supplies including mask, tube, filters. 8. Watching and losing weight. 9. Follow up visit in 6 months or earlier if patient has any problems. Thank you very much for allowing me to participate in the management of your patient. En Alab MD, PhD, FAASM. Diplomat of [place] [employer], Sleep Medicine Board by [place] [employer] Supervisor [employer] [facility] Objective - Vital Signs Vital signs: Vital Signs Temp 97.8 F 02/18/24 13:51 Pulse 78 02/18/24 13:51 Resp 16 02/18/24 13:51 BP 139/83 02/18/24 13:51 Pulse Ox 99 02/18/24 13:51 FiO2 Intake & Output 02/17/24 02/18/24 02/18/24 18:59 06:59 18:59 Weight 96.162 kg
== END ==
LOC: 3 N SLEEP 13:32
PROVIDERS: ATTEND Internal Medicine
DX: G47.33 Obstructive sleep apnea (adult) (pediatric) (principal); E66.9 Obesity, unspecified; I10 Essential (primary) hypertension; E78.5 Hyperlipidemia, unspecified; J45.909 Unspecified asthma, uncomplicated; F17.200 Nicotine dependence, unspecified, uncomplicated; Z87.09 Personal history of other diseases of the respiratory system; Z99.89 Dependence on other enabling machines and devices; Z86.16 Personal history of COVID-19; Z86.19 Personal history of other infectious and parasitic diseases; Z79.899 Other long term (current) drug therapy; Z88.5 Allergy status to narcotic agent; Z88.1 Allergy status to other antibiotic agents; Z88.0 Allergy status to penicillin; Z88.8 Allergy status to other drugs, medicaments and biological substances; Z68.37 Body mass index [BMI] 37.0-37.9, adult
CPT/HCPCS: 99212

== ENCOUNTER 2024-03-06 11:37 | Emergency (ER) | payer MEDICAID ==
--- NOTE | 2024-03-06 12:04 | ED ---
General Adult HPI - General Chief complaint: Extremity Injury, Lower Stated complaint: L foot injury Time Seen by Provider: 03/06/24 11:52 Source: patient, RN notes reviewed Mode of arrival: ambulatory Limitations: no limitations - History of Present Illness Initial comments: 53 year old female presents to the emergency department for evaluation of left ankle pain. Patient states that yesterday while she was pulling her housekeeping cart, she noticed some discomfort in her left posterior ankle and heel. She notes that since then she has had pain in this location, worse this morning when she woke up. She states that it is worse with walking. Admits to taking Tylenol and icing the area. - Related Data Previous Rx's Medication Instructions Recorded Meclizine [Antivert] 25 mg PO DAILY 10 Days tab 01/09/18 Ondansetron Odt [Zofran ODT] 4 mg PO Q8HR PRN #10 tab 01/09/18 Ketorolac [Toradol] 10 mg PO Q8HR #15 tab 03/06/24 Lidocaine 5% Patch [Lidoderm 5% 1 patch TOPICAL DAILY #30 patch 03/06/24 Patch] Allergies Allergy/AdvReac Type Severity Reaction Status Date / Time codeine Allergy Rapid Verified 03/06/24 11:46 Heart Rate erythromycin base Allergy Rash/Hives Verified 03/06/24 11:46 Penicillins Allergy Rash/Hives Verified 03/06/24 11:46 sumatriptan [From Imitrex] Allergy Rapid Verified 03/06/24 11:46 Heart Rate Review of Systems ROS Statement: Those systems with pertinent positive or pertinent negative responses have been documented in the HPI. ROS Other: All systems not noted in ROS Statement are negative. Past Medical History Past Medical History: No Reported History Additional Past Medical History / Comment(s): tremors History of Any Multi-Drug Resistant Organisms: None Reported Past Surgical History: Bladder Surgery, Orthopedic Surgery, Uterine Ablation Additional Past Surgical History / Comment(s): cyst removed from ovary, exploratory lap nasel surg, R foot Past Psychological History: No Psychological Hx Reported Smoking Status: Current every day smoker Past Alcohol Use History: None Reported Past Drug Use History: None Reported General Exam Limitations: no limitations General appearance: alert, in no apparent distress Head exam: Present: atraumatic, normocephalic, normal inspection Eye exam: Present: normal appearance, PERRL, EOMI. Absent: scleral icterus, conjunctival injection, periorbital swelling Extremities exam: Present: normal inspection, full ROM, tenderness (Left Achilles tendon), normal capillary refill, other (Distal pulses intact). Absent: pedal edema, joint swelling, calf tenderness Neurological exam: Present: alert, oriented X3 Skin exam: Present: warm, dry, intact, normal color. Absent: rash Course Vital Signs 03/06/24 03/06/24 03/06/24 11:44 12:19 13:41 Temperature 98.4 F 98.6 F Pulse Rate 95 117 H 101 H Respiratory 18 16 16 Rate Blood Pressure 130/86 117/79 121/83 O2 Sat by Pulse 99 98 99 Oximetry Medical Decision Making - Medical Decision Making Was pt. sent in by a medical professional or institution (, PA, PHARMACIST ASSISTANT, urgent care, hospital, or fci...) When possible be specific @ -No Did you speak to anyone other than the patient for history (EMS, parent, family, police, friend...)? What history was obtained from this source @ -No Did you review nursing and triage notes (agree or disagree)? Why? @ -I reviewed and agree with nursing and triage notes Were old charts reviewed (outside hosp., previous admission, EMS record, old EKG, old radiological studies, urgent care reports/EKG's, fci records)? Report findings @ -No old charts were reviewed Differential Diagnosis (chest pain, altered mental status, abdominal pain women, abdominal pain men, vaginal bleeding, weakness, fever, dyspnea, syncope, headache, dizziness, GI bleed, back pain, seizure, CVA, palpatations, mental health, musculoskeletal)? @ -Differential Musculoskeletal Muscular strain, contusion, ligament sprain, fracture, arthritis, septic arthritis, bursitis, cellulitis, muscle spasm, nerve compression, DVT, arterial occlusion, herpes zoster, electrolyte abnormality, tumor.... This is not meant to be in all inclusive list EKG interpreted by me (3pts min.). @ -None X-rays interpreted by me (1pt min.). @ -X-rays of the left ankle show no acute fracture, soft tissue swelling CT interpreted by me (1pt min.). @ -None done U/S interpreted by me (1pt. min.). @ -None done What testing was considered but not performed or refused? (CT, X-rays, U/S, labs)? Why? @ -None What meds were considered but not given or refused? Why? @ -None Did you discuss the management of the patient with other professionals (professionals i.e. , PA, PHARMACIST ASSISTANT, lab, RT, psych nurse, social service manager, certified ophthalmic technician, teacher, project control officer, watch case polisher)? Give summary @ -No Was smoking cessation discussed for >3mins.? @ -No Was critical care preformed (if so, how long)? @ -No Were there social determinants of health that impacted care today? How? (Homelessness, low income, unemployed, alcoholism, drug addiction, transportation, low edu. Level, literacy, decrease access to med. care, prison, rehab)? @ -No Was there de-escalation of care discussed even if they declined (Discuss DNR or withdrawal of care, Hospice)? DNR status @ -No What co-morbidities impacted this encounter? (DM, HTN, Smoking, COPD, CAD, Cancer, CVA, ARF, Chemo, Hep., AIDS, mental health diagnosis, sleep apnea, morbid obesity)? @ -None Was patient admitted / discharged? Hospital course, mention meds given and route, prescriptions, significant lab abnormalities, going to OR and other pertinent info. @ -Discharge. Patient presented to the emergency department for evaluation of the left foot and ankle pain. Patient has some tenderness palpation over the left Achilles tendon, patient has good plantarflexion with squeezing the calf. X-rays obtained which show no evidence of acute fracture, soft tissue swelling. Patient likely has Achilles tendinitis. Advised NSAIDs, rest, ice and gentle exercises. Patient understanding agreeable plan. Patient stable at time of discharge. Case discussed with Dr. Miranda. Undiagnosed new problem with uncertain prognosis? @ -No Drug Therapy requiring intensive monitoring for toxicity (Heparin, Nitro, Insulin, Cardizem)? @ -No Were any procedures done? @ -No Diagnosis/symptom? @ -Achilles tendinitis Acute, or Chronic, or Acute on Chronic? @ -Acute Uncomplicated (without systemic symptoms) or Complicated (systemic symptoms)? @ -Uncomplicated Side effects of treatment? @ -No Exacerbation, Progression, or Severe Exacerbation? @ -No Poses a threat to life or bodily function? How? (Chest pain, USA, ND, pneumonia, PE, COPD, DKA, ARF, appy, cholecystitis, CVA, Diverticulitis, Homicidal, Suicidal, threat to staff... and all critical care pts) @ -No Disposition Clinical Impression: Achilles tendonitis Disposition: HOME SELF-CARE Condition: Stable Instructions (If sedation given, give patient instructions): Achilles Tendinitis (ED) Additional Instructions: Do not take any other anti-inflammatory medications such as ibuprofen while taking the toradol. You may take Tylenol with this. Rest, ice, elevate. Utilize gentle stretching exercises. Follow up with your branding specialist. Return to the emergency department for new or worsening symptoms. Prescriptions: Lidocaine 5% Patch [Lidoderm 5% Patch] 1 patch TOPICAL DAILY #30 patch Ketorolac [Toradol] 10 mg PO Q8HR #15 tab Is patient prescribed a controlled substance at d/c from ED?: No Referrals: Luis Bowles DO [Primary Care Provider] - 1-2 days
[2024-03-06] MEDS: KETOROLAC 15 MG/ML 1 ML VIAL IM STA (12:28)
[2024-03-06 12:31] VITALS: RESP 16; TEMP 98.6
--- NOTE | 2024-03-06 12:42 | XR ---
EXAMINATION TYPE: XR ankle complete LT DATE OF EXAM: 03/06/2024 12:20 PM CLINICAL INDICATION:Female, 53 years old with history of pain; COMPARISON: None TECHNIQUE: XR ankle complete LT; ankle is imaged in frontal, lateral and oblique projections. FINDINGS: There is no evidence of acute osseous pathology. The joint spaces are well-preserved without evidenc e of subluxation or dislocation. Kager's fat pad is intact. Mild soft tissue swelling around the ankl e. No radiopaque foreign bodies are identified. Calcaneal plantar spurring and Achilles enthesophyte formation. IMPRESSION: 1. No evidence of acute fracture. 2. Subcutaneous swelling around the ankle likely secondary to underlying soft tissue injury.
[2024-03-06 13:53] VITALS: BP 121/83; PULSE 101
== END 2024-03-06 13:42 | disposition home or self-care (01) ==
LOC: EC 11:37
DX: M76.62 Achilles tendinitis, left leg (principal); Z88.0 Allergy status to penicillin; Z88.5 Allergy status to narcotic agent; Z88.8 Allergy status to other drugs, medicaments and biological substances
CPT/HCPCS: 73610; 99283; 96372; J1885

== ENCOUNTER 2024-06-09 11:10 | Day surgery (SDC) | payer MEDICAID ==
[2024-06-09] MEDS: LACTATED RINGERS 1,000 ML IV SCH (12:03)
[2024-06-09] MEDS: IV FLUID CONTINUATION 1,000 ML IV ONE ×2 (12:04→12:06)
[2024-06-09] MEDS ORDERED: PROPOFOL 10 MG/ML 20 ML VIAL IV ONE (12:07)
[2024-06-09] MEDS ORDERED: LIDOCAINE 2% (PF) 20 MG/ML 5 ML VIAL ONE (12:07)
[2024-06-09 12:09] VITALS: TEMP 07.2
--- NOTE | 2024-06-09 12:10 | P.GSHP ---
History of Present Illness H&P Date: 06/09/24 CHIEF COMPLAINT: GERD and colon screen HISTORY OF PRESENT ILLNESS: The patient is a 54-year-old female who presents with gastroesophageal reflux disease and need for colon screen. Upper and lower endoscopy were offered for further evaluation and management. PAST MEDICAL HISTORY: Please see list. PAST SURGICAL HISTORY: Please see list. MEDICATIONS: Please see list. ALLERGIES: Please see list. SOCIAL HISTORY: No illicit drug use FAMILY HISTORY: No reports of Crohn disease or ulcerative colitis. REVIEW OF ORGAN SYSTEMS: CONSTITUTIONAL: No reports of fevers or chills. GI: Denies any blood in stools or constipation. PHYSICAL EXAM: VITAL SIGNS: Stable GENERAL: Well-developed pleasant in no acute distress. HEENT: No scleral icterus. Extraocular movements grossly intact. Moist buccal mucosa. NECK: Supple without lymphadenopathy. CHEST: Unlabored respirations. Equal bilateral excursions. CARDIOVASCULAR: Regular rate and rhythm. Distal 2+ pulses. ABDOMEN: Soft, nondistended. MUSCULOSKELETAL: No clubbing, cyanosis, or edema. ASSESSMENT: 1. Gastroesophageal reflux disease 2. Colon screen. PLAN: 1. Recommend proceeding with an upper and lower endoscopy Past Medical History Past Medical History: Asthma, COPD, GERD/Reflux, Hyperlipidemia, Hypertension, Osteoarthritis (OA), Sleep Apnea/CPAP/BIPAP Additional Past Medical History / Comment(s): tremors, allergies. blood in stool,loose stools. hx polyps- benign. hemorrhoids, vertigo. cold sores. fungal infection to toe nails improving, "bad feet", hx or torn Lt achilles tendon, wears brace. back pain. wears cpap History of Any Multi-Drug Resistant Organisms: None Reported Past Surgical History: Bladder Surgery, Hysterectomy, Orthopedic Surgery, Tubal Ligation, Uterine Ablation Additional Past Surgical History / Comment(s): cyst removed from ovary, exploratory lap nasel surg, R foot, colonoscopy x3. has had issues with bleeding after invasive surgeries Additional Past Anesthesia/Blood Transfusion Reaction / Comment(s): woke up at the end of colonoscopy, Smoking Status: Current every day smoker, Vaper - Past Family History Father Family Medical History: Coronary Artery Disease (CAD), Diabetes Mellitus Additional Family Medical History / Comment(s): parkinsons Mother Family Medical History: Coronary Artery Disease (CAD), Diabetes Mellitus Additional Family Medical History / Comment(s): parkinsons Medications and Allergies Home Medications Medication Instructions Recorded Confirmed Type Acyclovir [Zovirax] 400 mg PO DAILY 06/07/24 06/09/24 History Lidocaine 5% Patch [Lidoderm 5% 1 patch TOPICAL DAILY PRN 06/07/24 06/09/24 History Patch] Lisinopril-Hydrochlorothiazide 1 tab PO DAILY 06/07/24 06/09/24 History Meclizine [Antivert] 25 mg PO DAILY PRN 06/07/24 06/09/24 History Terbinafine [LamISIL] 250 mg PO DAILY 06/07/24 06/09/24 History Unk Albuterol Inhaler 1 puff INHALATION DIRECTED PRN 06/07/24 06/09/24 History Allergies Allergy/AdvReac Type Severity Reaction Status Date / Time codeine Allergy Rapid Verified 06/09/24 11:50 Heart Rate erythromycin base Allergy Rash/Hives Verified 06/09/24 11:50 Penicillins Allergy Rash/Hives Verified 06/09/24 11:50 sulfamethoxazole Allergy caused Verified 06/09/24 11:50 [From Bactrim] kidney to start failing sumatriptan [From Imitrex] Allergy Rapid Verified 06/09/24 11:50 Heart Rate trimethoprim [From Bactrim] Allergy caused Verified 06/09/24 11:50 kidney to start failing Surgical - Exam Vital Signs Temp Pulse Resp BP Pulse Ox 07.2 F L 90 20 171/98 98 06/09/24 12:00 06/09/24 12:00 06/09/24 12:00 06/09/24 12:00 06/09/24 12:00
--- NOTE | 2024-06-09 12:24 | P.PCN ---
Date of Procedure: 06/09/24 Description of Procedure: PREOPERATIVE DIAGNOSIS: Gastroesophageal reflux disease. Morbid obesity POSTOPERATIVE DIAGNOSIS: Gastroesophageal reflux disease Morbid obesity. Gastritis. Diaphragmatic hiatal hernia OPERATION: Esophagogastroduodenoscopy with biopsies along esophagus, antrum and duodenum SURGEON: Bernadine Cihu MD ANESTHESIA: MAC. INDICATIONS: The patient is a 54-year-old female who presents with reflux disease. Benefits and risks of the procedure were described. Informed consent was obtained. DESCRIPTION: The patient was brought into the endoscopy suite and laid in the left lateral decubitus position. An Olympus gastroscope was passed along the posterior oropharynx down to the distal esophagus where the squamocolumnar junction was encountered at 36 cm from the incisors. The stomach was entered and no bile reflux was found. Additional findings are listed below. Biopsies with cold forceps were obtained of the antrum. The first through third portion of the duodenum was examined. Retroflexion of the scope confirmed Hill grade 3 lower esophageal valve. The squamocolumnar junction demonstrated LA grade B erosive esophagitis. The stomach was desufflated. The patient tolerated the procedure well. FINDINGS: Squamocolumnar junction 36 cm from the incisors. Diaphragmatic hiatus at 40 cm. Hiatal hernia, 4 cm, sliding-type Hill grade 3 lower esophageal valve. LA grade B erosive esophagitis. Biopsies obtained. Biopsies obtained of the duodenum. Chronic gastritis with biopsies obtained. RECOMMENDATIONS: Upper endoscopy as needed.
--- NOTE | 2024-06-09 12:53 | P.PCN ---
Date of Procedure: 06/09/24 Description of Procedure: PREOPERATIVE DIAGNOSIS: Personal history of colon polyps Colonoscopy screening POSTOPERATIVE DIAGNOSIS: Tubular adenoma rectum Internal hemorrhoids, grade 4 External hemorrhoids, grade 4 OPERATION: Colonoscopy to the ileocecal valve and appendiceal orifice, cecum Colonoscopy with cold forceps biopsy SURGEON: Bernadine Chiu MD. ANESTHESIA: MAC. INDICATIONS: The patient is an 54-year-old female who presents personal history of colon polyps. Last colonoscopy 5 years. Benefits and risks were described and informed consent was obtained. DESCRIPTION OF PROCEDURE: The patient had undergone Sutab prep. The patient had been brought into the operating room and laid in the left lateral decubitus position. After adequate intravenous sedation, the rectum was examined with 2% lidocaine jelly. The prostate was unremarkable. External hemorrhoids were encountered. The rectal tone was within normal limits. No lesions were palpated in the rectal vault. An Olympus colonoscope was advanced until the cecum, ileocecal valve and appendiceal orifice were clearly viewed. The prep was fair. Sigmoid diverticulosis was encountered. Colonic polyps were found and removed. No evidence of focal colitis was found. Retroflexion of the scope demonstrated grade 4 internal hemorrhoids without active bleeding or inflammation. The colon was desufflated. The patient had tolerated the procedure well. Withdrawal time was over 6 minutes. FINDINGS: Aronchick preparation quality scale 2+ (1-5) Internal hemorrhoids, grade 4 External hemorrhoids, grade 4. No arteriovenous malformations. Removal of 2 polyps: - Cold forceps biopsy at rectum x 2, 3 to 4 mm adenoma, rectum. No focal colitis. RECOMMENDATIONS: Repeat colonoscopy 3 years, 2026 Plan - Discharge Summary Discharge Rx Participant: No New Discharge Prescriptions: Continue Acyclovir [Zovirax] 400 mg PO DAILY Terbinafine [LamISIL] 250 mg PO DAILY Lisinopril-Hydrochlorothiazide 1 tab PO DAILY Meclizine [Antivert] 25 mg PO DAILY PRN PRN Reason: Vertigo Lidocaine 5% Patch [Lidoderm 5% Patch] 1 patch TOPICAL DAILY PRN PRN Reason: Pain Unk Albuterol Inhaler 1 puff INHALATION DIRECTED PRN PRN Reason: Shortness Of Breath Discharge Medication List Acyclovir [Zovirax] 400 mg PO DAILY 06/07/24 [History] Lidocaine 5% Patch [Lidoderm 5% Patch] 1 patch TOPICAL DAILY PRN 06/07/24 [History] Lisinopril-Hydrochlorothiazide 1 tab PO DAILY 06/07/24 [History] Meclizine [Antivert] 25 mg PO DAILY PRN 06/07/24 [History] Terbinafine [LamISIL] 250 mg PO DAILY 06/07/24 [History] Unk Albuterol Inhaler 1 puff INHALATION DIRECTED PRN 06/07/24 [History] Follow up Appointment(s)/Referral(s): Bernadine Chiu MD [STAFF PHYSICIAN] - 07/12/24 4:00 pm Patient Instructions/Handouts: Hiatal Hernia (DC), Colorectal Polyps (GEN) Activity/Diet/Wound Care/Special Instructions: Repeat colonoscopy 3 years, 2026 Discharge Disposition: HOME SELF-CARE
[2024-06-09 12:54] VITALS: BP 134/86; PULSE 75; RESP 18
== END 2024-06-09 13:49 | disposition home or self-care (01) ==
LOC: ORWHC2ENDO 11:10
PROVIDERS: ATTEND Surgery Plastic and Reconstructive Surgery
DX: Z12.11 Encounter for screening for malignant neoplasm of colon (principal); D12.8 Benign neoplasm of rectum; E66.01 Morbid (severe) obesity due to excess calories; K29.50 Unspecified chronic gastritis without bleeding; K44.9 Diaphragmatic hernia without obstruction or gangrene; K64.3 Fourth degree hemorrhoids; K64.4 Residual hemorrhoidal skin tags; E78.5 Hyperlipidemia, unspecified; I10 Essential (primary) hypertension; G47.30 Sleep apnea, unspecified; J44.9 Chronic obstructive pulmonary disease, unspecified; F17.290 Nicotine dependence, other tobacco product, uncomplicated; M19.90 Unspecified osteoarthritis, unspecified site; R25.1 Tremor, unspecified; Z90.710 Acquired absence of both cervix and uterus; Z83.3 Family history of diabetes mellitus; Z82.49 Family history of ischemic heart disease and other diseases of the circulatory system; Z87.19 Personal history of other diseases of the digestive system; Z79.899 Other long term (current) drug therapy; Z79.624 Long term (current) use of inhibitors of nucleotide synthesis; Z88.1 Allergy status to other antibiotic agents; Z88.0 Allergy status to penicillin; Z88.2 Allergy status to sulfonamides; Z79.51 Long term (current) use of inhaled steroids
CPT/HCPCS: 45380; 43239; J2704; J2001; 88305; 88341; 88342

== ENCOUNTER → 2024-07-21 | Outpatient (CLI) | payer MEDICAID ==
--- NOTE | 2024-07-21 11:30 | US ---
EXAMINATION TYPE: US gallbladder DATE OF EXAM: 07/21/2024 COMPARISON: NONE CLINICAL INDICATION: Female, 54 years old with history of R10.11 RUQ PAIN; Pain TECHNIQUE: Multiple sonographic images of the right upper quadrant are obtained. FINDINGS: EXAM MEASUREMENTS: Liver Length: 14.9 cm Gallbladder Wall: .3 cm CBD: .4 cm Right Kidney: 9.9 x 3.4 x 4.0 cm COAL DUMPING EQUIPMENT OPERATOR NOTES: Pancreas: Obscured by bowel gas Liver: wnl Gallbladder: No stones seen Evidence for sonographic Garza's sign: No CBD: wnl Right Kidney: No hydronephrosis or masses seen IMPRESSION: No acute process. If symptoms persist consider follow-up CT scan.
== END | disposition home or self-care (01) ==
LOC: RADUSWWP 08:57
PROVIDERS: ATTEND Surgery Plastic and Reconstructive Surgery
DX: R10.11 Right upper quadrant pain (principal)
CPT/HCPCS: 76705

== ENCOUNTER → 2024-07-26 | Outpatient (CLI) | payer MEDICAID ==
--- NOTE | 2024-07-26 09:01 | NM ---
EXAMINATION TYPE: NM hepatobiliary w EF DATE OF EXAM: 07/26/2024 8:54 AM COMPARISON: Ultrasound 07/21/2024 CLINICAL INDICATION:Female, 54 years old with history of R10.11 RUQ PAIN; TECHNIQUE: The patient was given 5.12 mCi of Technetium 99m-Mebrofenin as a radiotracer and multiple scintigraphic images were obtained of the abdomen. Gallbladder function was also assessed after the administration of ensure drink and additional scintigraphic images were obtained of the abdomen. A re gion of interest was drawn over the gallbladder and a timing activity curve was generated. The gallbl adder ejection fraction was calculated. FINDINGS: Normal uptake of radiotracer was identified within the liver with excretion into the hepatic and comm on biliary ducts within 12 minutes. There was normal progressive washout of the liver over the course of the study. Radiotracer uptake within the gallbladder at 6 minutes as well as small bowel activity was identified at 24 minutes. Maximum calculated gallbladder ejection fraction is: 77% at 30 minutes (Normal gallbladder ejection fraction is > 35%) IMPRESSION: 1. Normal hepatobiliary scan. 2. Normal ejection fraction. [facility], , 07/26/2024 8:59 AM
== END | disposition home or self-care (01) ==
LOC: RADNMMAIN 06:43
PROVIDERS: ATTEND Surgery Plastic and Reconstructive Surgery
DX: R10.11 Right upper quadrant pain (principal)
CPT/HCPCS: 78226

== ENCOUNTER → 2024-11-25 | Outpatient (CLI) | payer MEDICAID ==
--- NOTE | 2024-11-28 07:30 | MM ---
Reason for Exam: Screening (asymptomatic). Last mammogram was performed 3 year(s) and 11 month(s) ago. Patient History: Menarche at age 11. First Full-Term at age 30. Left ovary removed at age 40. Right ovary removed at age 40. Hysterectomy at age 40. Postmenopausal. Endometrial cancer, age 21. Patient used Estrogen for 3 years. Patient used Progesterone for 3 years. Paternal aunt had breast cancer. Maternal aunt had breast cancer. Maternal aunt had breast cancer. Risk Values: Darby 5 year model risk: 1.3%. NCI Lifetime model risk: 10.3%. Prior Study Comparison: 12/23/2017 Bilateral Screening Mammogram, [facility]. 01/01/2018 Left Diagnostic Mammogram, [facility]. 12/28/2020 Bilateral Screening Mammogram, [facility]. Tissue Density: There are scattered areas of fibroglandular density. Findings: Analyzed By CAD. There is no suspicious group of microcalcifications or new suspicious mass in either breast. Overall Assessment: Negative, BI-RAD 1 Management: Screening Mammogram of both breasts in 1 year. . Patient should continue monthly self-breast exams. A clinical breast exam by your physician is recommended on an annual basis. This exam should not preclude additional follow-up of suspicious palpable abnormalities. Note on Darby scores and lifetime risk: 1. A Darby score greater than 3% is considered moderate risk. If this is the case, consider specialist referral to assess eligibility for a risk reducing agent. 2. If overall lifetime risk for the development of breast cancer is 20% or higher, the patient may qualify for future screening with alternating mammogram and breast MRI. [facility], , 11/28/2024 7:26 AM. Electronically signed and approved by: Payam Sánchez M.D. Radiologist
== END | disposition home or self-care (01) ==
LOC: RADMAMWWP 15:02
PROVIDERS: ATTEND Family Medicine
DX: Z12.31 Encounter for screening mammogram for malignant neoplasm of breast (principal); R92.323 Mammographic fibroglandular density, bilateral breasts; Z78.0 Asymptomatic menopausal state; Z80.3 Family history of malignant neoplasm of breast; Z90.722 Acquired absence of ovaries, bilateral
CPT/HCPCS: 77063; 77067